=== PATIENT | female | born 1980 | race Caucasian/White ===

== ENCOUNTER 2018-10-04 13:44 | Inpatient (IN) | payer OTHER ==
[~2018-10-04] VITALS: Ht 172.7 cm; Wt 69.9 kg
[~2018-10-04 13:44] MED LIST: PRENATAL TABLET1 TA1 PO
[2018-10-23] MEDS ORDERED: IRON325 MG PO (07:14)
[2018-10-23] MEDS ORDERED: SYNTHROID50 MCG PO (07:15)
== END 2018-10-25 09:53 | disposition home or self-care (01) | DRG 807 ==
LOC: LDR 10-23 05:33 → OB/GYN 10-23 21:48
PROVIDERS: ADMIT Obstetrics & Gynecology
PROC: 10E0XZZ Delivery of Products of Conception, External Approach (ICD-10-PCS; principal; 2018-10-23)
PROC: 0KQM0ZZ Repair Perineum Muscle, Open Approach (ICD-10-PCS; 2018-10-23)
PROC: 10907ZC Drainage of Amniotic Fluid, Therapeutic from Products of Conception, Via Natural or Artificial Opening (ICD-10-PCS; 2018-10-23)
PROC: 3E033VJ Introduction of Other Hormone into Peripheral Vein, Percutaneous Approach (ICD-10-PCS; 2018-10-23)
PROC: 0W8NXZZ Division of Female Perineum, External Approach (ICD-10-PCS; 2018-10-23)
PROC: 4A1HXCZ Monitoring of Products of Conception, Cardiac Rate, External Approach (ICD-10-PCS; 2018-10-23)
DX: O70.1 Second degree perineal laceration during delivery (principal); Z37.0 Single live birth; Z3A.39 39 weeks gestation of pregnancy

== ENCOUNTER → 2018-10-22 | Outpatient (CLI) | payer OTHER ==
[~2018-10-22] MED LIST changes: +IRON325 MG PO; +SYNTHROID50 MCG PO
== END | disposition home or self-care (01) ==
LOC: NST 15:10
DX: Z34.83 Encounter for supervision of other normal pregnancy, third trimester (principal)